=== PATIENT | male | born 1955 | race Caucasian/White ===

== ENCOUNTER 2019-10-11 11:04 | Emergency (ER) | payer MEDICARE, BC ==
--- NOTE | 2019-10-11 11:14 | EDM.PDOC ---
ED HPI GENERAL MEDICAL PROBLEM - General Stated Complaint: POSSIBLE HEART ATTACK Time Seen by Provider: 10/11/19 11:11 Source of Information: Reports: Patient, Significant Other - History of Present Illness INITIAL COMMENTS - FREE TEXT/NARRATIVE: Old gentleman who is had known previously existing angina presents with chest pain which occurred at rest yesterday and again today. Yesterday pain started at 5 PM and the patient rated it as a 7/10. At that time he took nitroglycerin x3 and aspirin and the pain subsided. Today pain came on at approximately 9 AM (at rest, immediately on awakening). He has not taken any Nitroglycerin or aspirin today for pain. He has taken his usual morning medications. He rates his current chest pain as 5/10. The patient has a pre-existing history of left bundle branch block. Also has a history of recurrent vascular procedures including carotid endarterectomy, 4 vessel CABG, and lower extremity vascular surgery. Onset Date: 10/11/19 Onset Time: 09:00 Duration: Chronic, Constant Location: Reports: Chest Chest Pain Score (Numeric/FACES): 5 - Related Data Allergies Allergy/AdvReac Type Severity Reaction Status Date / Time No Known Allergies Allergy Verified 01/24/19 09:51 Home Meds: Home Meds Aspirin [Ecotrin] 325 mg PO DAILY 09/24/17 [History] Clopidogrel Bisulfate [Clopidogrel] 75 mg PO DAILY 09/24/17 [History] Insulin Glarg,Human.Rec.Analog [Lantus Solostar] 30 units SQ DAILY 09/24/17 [History] Lisinopril 40 mg PO DAILY 09/24/17 [History] Metoprolol Succinate 50 mg PO DAILY 09/24/17 [History] Nitroglycerin 0.4 mg PO ASDIRECTED PRN 09/24/17 [History] Dapagliflozin/Metformin HCl [Xigduo Xr 5 mg-1,000 mg Tablet] 1 tab PO BID 01/21/19 [History] atorvaSTATin Calcium [Atorvastatin Calcium] 40 mg PO DAILY 01/21/19 [History] cilostazoL [Cilostazol] 50 mg PO BID 01/24/19 [History] Ferrous Sulfate [Iron] 325 mg PO DAILY 10/11/19 [History] Furosemide 20 mg PO DAILY 10/11/19 [History] Isosorbide Mononitrate 40 mg PO DAILY 10/11/19 [History] Pregabalin [Lyrica] 150 mg PO TID 10/11/19 [History] Past Medical History Cardiovascular History: Reports: CAD, High Cholesterol, Hypertension, Stents, Other (See Below) (Is anticoagulated.) ED ROS GENERAL - Review of Systems Review Of Systems: See Below Constitutional: Denies: Fever, Diaphoresis HEENT: Reports: No Symptoms Respiratory: Reports: Shortness of Breath, Wheezing Cardiovascular: Reports: Chest Pain, Edema Endocrine: Reports: Fatigue GI/Abdominal: Denies: Abdominal Pain Skin: Reports: No Symptoms Neurological: Reports: No Symptoms Psychiatric: Reports: No Symptoms ED EXAM, GENERAL - Physical Exam Exam: See Below Exam Limited By: No Limitations General Appearance: Alert Throat/Mouth: Normal Inspection Head: Atraumatic Neck: Non-Tender (No), Other Course - Vital Signs Text/Narrative:: The patient's chest pain went to 0 with a single dose of nitroglycerin. Troponin is elevated. AtTroponin is elevated. At 1245 I discussed the patient with Dr. Mendoza who agreed that the patient could be transferred for [facility] Last Recorded V/S: Last Vital Signs Temp 36.3 C 10/11/19 12:07 Pulse 64 10/11/19 12:07 Resp 17 10/11/19 12:07 BP 116/55 L 10/11/19 12:07 Pulse Ox 99 10/11/19 12:07 - Orders/Labs/Meds Orders: Active Orders 24 hr Category Date Time Status EKG Documentation Completion [RC] ASDIRECTED Care 10/11/19 11:13 Active Chest 2V [CR] Stat Exams 10/11/19 11:22 Taken UA W/MICROSCOPIC [URIN] Urgent Lab 10/11/19 11:22 Ordered Nitroglycerin [Nitrostat] Med 10/11/19 11:25 Active 0.4 mg SL Q5M PRN Sodium Chloride 0.9% [Normal Saline] 1,000 ml Med 10/11/19 11:23 Active IV TITRATE EKG 12 Lead [EK] Urgent Ther 10/11/19 11:13 Ordered Medication Orders Sodium Chloride (Normal Saline) 1,000 mls @ 75 mls/hr IV TITRATE ONE Stop: 10/12/19 00:42 Nitroglycerin (Nitrostat) 0.4 mg SL Q5M PRN PRN Reason: Chest Pain Labs: Laboratory Tests 10/11/19 10/11/19 10/11/19 Range/Units 11:30 11:30 11:30 WBC 7.7 (4.5-11.0) K/uL RBC 4.79 (4.30-5.90) M/uL Hgb 12.5 (12.0-15.0) g/dL Hct 37.8 L (40.0-54.0) % MCV 79 L (80-98) fL MCH 26 L (27-31) pg MCHC 33 (32-36) % Plt Count 266 (150-400) K/uL PT 14.0 H (9.5-12.0) sec INR 1.29 H (0.80-1.20) Sodium (140-148) mmol/L Potassium (3.6-5.2) mmol/L Chloride (100-108) mmol/L Carbon Dioxide (21-32) mmol/L Anion Gap (5.0-14.0) mmol/L BUN (7-18) mg/dL Creatinine (0.8-1.3) mg/dL Est Cr Clr Drug Dosing mL/min Estimated GFR (MDRD) (>60) Glucose (74-106) mg/dL Lactic Acid (0.4-2.0) mmol/L Calcium (8.5-10.1) mg/dL Total Bilirubin (0.2-1.0) mg/dL AST (15-37) U/L ALT (12-78) U/L Alkaline Phosphatase (46-116) U/L Troponin I 0.192 H* (0.000-0.056) ng/mL NT-Pro-B Natriuret Pep (5-125) pg/mL Total Protein (6.4-8.2) g/dL Albumin (3.4-5.0) g/dL Globulin (2.3-3.5) g/dL Albumin/Globulin Ratio (1.2-2.2) 10/11/19 10/11/19 Range/Units 11:30 11:30 WBC (4.5-11.0) K/uL RBC (4.30-5.90) M/uL Hgb (12.0-15.0) g/dL Hct (40.0-54.0) % MCV (80-98) fL MCH (27-31) pg MCHC (32-36) % Plt Count (150-400) K/uL PT (9.5-12.0) sec INR (0.80-1.20) Sodium 128 L (140-148) mmol/L Potassium 4.6 (3.6-5.2) mmol/L Chloride 94 L (100-108) mmol/L Carbon Dioxide 24 (21-32) mmol/L Anion Gap 14.6 H (5.0-14.0) mmol/L BUN 21 H (7-18) mg/dL Creatinine 1.6 H (0.8-1.3) mg/dL Est Cr Clr Drug Dosing 44.76 mL/min Estimated GFR (MDRD) 44 L (>60) Glucose 119 H (74-106) mg/dL Lactic Acid 1.5 (0.4-2.0) mmol/L Calcium 8.7 (8.5-10.1) mg/dL Total Bilirubin 2.2 H (0.2-1.0) mg/dL AST 20 (15-37) U/L ALT 17 (12-78) U/L Alkaline Phosphatase 272 H (46-116) U/L Troponin I (0.000-0.056) ng/mL NT-Pro-B Natriuret Pep 2992 H (5-125) pg/mL Total Protein 7.5 (6.4-8.2) g/dL Albumin 3.3 L (3.4-5.0) g/dL Globulin 4.2 H (2.3-3.5) g/dL Albumin/Globulin Ratio 0.8 L (1.2-2.2) Meds: Medications Generic Name Dose Route Start Last Admin Trade Name Freq PRN Reason Stop Dose Admin Sodium Chloride 1,000 mls @ 75 mls/hr 10/11/19 11:23 Normal Saline IV 10/12/19 00:42 TITRATE ONE Nitroglycerin 0.4 mg 10/11/19 11:25 Nitrostat SL Q5M PRN Chest Pain Discontinued Medications Generic Name Dose Route Start Last Admin Trade Name Freq PRN Reason Stop Dose Admin Aspirin 324 mg 10/11/19 11:25 Aspirin PO 10/11/19 11:26 ONETIME ONE Departure - Departure Time of Disposition: 12:53 Disposition: DC/Tfer to [facility] Reason for Transfer *Q: Primary PCI Indicated Condition: Fair Clinical Impression: Unstable angina Referrals: Donna Reyes MD [Primary Care Provider] - Sepsis Event Note (ED) - Focused Exam Vital Signs: Vital Signs Temp Pulse Resp BP Pulse Ox 10/11/19 12:07 36.3 C 64 17 116/55 L 99 10/11/19 11:19 36.3 C 64 17 116/55 L 99 - My Orders Last 24 Hours: My Active Orders 10/11/19 11:13 EKG Documentation Completion [RC] ASDIRECTED EKG 12 Lead [EK] Urgent 10/11/19 11:22 Chest 2V [CR] Stat UA W/MICROSCOPIC [URIN] Urgent 10/11/19 11:23 Sodium Chloride 0.9% [Normal Saline] 1,000 ml IV TITRATE 10/11/19 11:25 Nitroglycerin [Nitrostat] 0.4 mg SL Q5M PRN - Assessment/Plan Last 24 Hours: My Active Orders 10/11/19 11:13 EKG Documentation Completion [RC] ASDIRECTED EKG 12 Lead [EK] Urgent 10/11/19 11:22 Chest 2V [CR] Stat UA W/MICROSCOPIC [URIN] Urgent 10/11/19 11:23 Sodium Chloride 0.9% [Normal Saline] 1,000 ml IV TITRATE 10/11/19 11:25 Nitroglycerin [Nitrostat] 0.4 mg SL Q5M PRN
[2019-10-11] MEDS ORDERED: Sodium Chloride 0.9% 1,000 ML IV ONE (11:23)
[2019-10-11] MEDS ORDERED: Nitroglycerin 0.4 MG Tab.SL SL PRN (11:25)
[2019-10-11] MEDS ORDERED: Aspirin 81 MG Tab.Chew PO ONE (11:25)
[2019-10-11] MEDS ORDERED: Heparin Sodium/D5W 25,000 UNITS/500 ML BAG IV SCH (13:15)
--- NOTE | 2019-10-13 09:04 | CR ---
CHEST: 2 view CLINICAL HISTORY:Chest pain COMPARISON:None FINDINGS: The heart is enlarged. Patient has had previous sternotomy. Pulmonary vascularity is cephalized. There is some diffuse bilateral infiltrate. There are no effusions Impression: Cardiomegaly, vascular cephalization and bilateral infiltrates most consistent with CHF
== END 2019-10-11 13:20 | disposition critical access hospital (66) ==
LOC: JP.ED 11:04
DX: I25.110 Atherosclerotic heart disease of native coronary artery with unstable angina pectoris (principal); I10 Essential (primary) hypertension; E78.00 Pure hypercholesterolemia, unspecified; Z95.5 Presence of coronary angioplasty implant and graft; Z79.82 Long term (current) use of aspirin; Z79.899 Other long term (current) drug therapy; Z79.02 Long term (current) use of antithrombotics/antiplatelets; Z79.891 Long term (current) use of opiate analgesic; Z79.4 Long term (current) use of insulin
CPT/HCPCS: 36415; 71046; 80053; 83605; 83880; 84484; 85027; 85610; 93005; 96360; 96361; 99285; A9270; J1644; J7030; 93010

== ENCOUNTER 2019-11-20 00:04 | Emergency (ER) | payer MEDICARE, BC ==
[2019-11-20] MEDS ORDERED: Tranexamic Acid 1,000 MG in Sodium Chloride 0.9% 500 ML IV ONE ×2 (01:25→01:31)
[2019-11-20] MEDS ORDERED: fentaNYL 100 MCG/2 ML SDV IVPUSH ONE (01:25)
--- NOTE | 2019-11-20 01:42 | EDM.PDOC ---
ED HPI GENERAL MEDICAL PROBLEM - General Chief Complaint: ENT Problem Stated Complaint: MOUTH PAIN Time Seen by Provider: 11/20/19 01:20 Source of Information: Reports: Patient, RN Notes Reviewed History Limitations: Reports: No Limitations - History of Present Illness INITIAL COMMENTS - FREE TEXT/NARRATIVE: 63-year-old gentleman presents emergency department a complaint bleeding gums, he had dental extraction on 5 days prior total of 11 teeth initially did well however clots removed 2 days ago he does take Eliquis now he is just had continued oozing, also complains of a headache no nausea or vomiting states the pain is 10 out of 10 he usually does not get headache he complains of some facial swelling with the dental extraction Headache Pain Score (Numeric/FACES): 10 - Related Data Allergies Allergy/AdvReac Type Severity Reaction Status Date / Time No Known Allergies Allergy Verified 11/20/19 00:40 Home Meds: Home Meds Insulin Glarg,Human.Rec.Analog [Lantus Solostar] 30 units SQ DAILY 09/24/17 [History] Nitroglycerin 0.4 mg PO ASDIRECTED PRN 09/24/17 [History] atorvaSTATin Calcium [Atorvastatin Calcium] 40 mg PO DAILY 01/21/19 [History] Ferrous Sulfate [Iron] 325 mg PO DAILY 10/11/19 [History] Furosemide 20 mg PO DAILY 10/11/19 [History] Isosorbide Mononitrate 40 mg PO DAILY 10/11/19 [History] Pregabalin [Lyrica] 150 mg PO TID 10/11/19 [History] Acetaminophen/HYDROcodone [[place] 325-5 MG] 1 tab PO ASDIRECTED 11/20/19 [History] Amoxicillin/Potassium Clav [Amox-Clav 875-125 mg Tablet] 1 tab PO BID 11/20/19 [History] Apixaban [Eliquis] 5 mg PO BID 11/20/19 [History] glipiZIDE [Glucotrol XL] 2.5 mg PO DAILY 11/20/19 [History] Past Medical History HEENT History: Reports: Other (See Below) Other HEENT History: teeth removal Cardiovascular History: Reports: CAD, High Cholesterol, Hypertension, Stents, Other (See Below) Endocrine/Metabolic History: Reports: Diabetes, Type II - Infectious Disease History Infectious Disease History: Reports: Chicken Pox - Past Surgical History Cardiovascular Surgical History: Reports: Coronary Artery Stent, Valve Repla cement GI Surgical History: Reports: Appendectomy Social & Family History - Tobacco Use Smoking Status *Q: Never Smoker - Caffeine Use Caffeine Use: Reports: None - Recreational Drug Use Recreational Drug Use: No ED ROS ENT - Review of Systems Review Of Systems: See Below HEENT: Reports: Other Respiratory: Reports: No Symptoms (Bleeding gums) Cardiovascular: Reports: No Symptoms GI/Abdominal: Reports: No Symptoms Neurological: Reports: Headache ED EXAM, ENT - Physical Exam Exam: See Below Exam Limited By: No Limitations General Appearance: Alert, WD/WN, No Apparent Distress Nose: Normal Inspection, Normal Mucousa, No Blood Mouth/Throat: Bleeding, Dental Trauma, Gum Swelling, Lip Swelling Head: Atraumatic, Normocephalic Neck: Normal Inspection, Supple, Non-Tender, Full Range of Motion Respiratory/Chest: No Respiratory Distress Course - Vital Signs Last Recorded V/S: Last Vital Signs Temp 95.7 F L 11/20/19 00:38 Pulse 79 11/20/19 02:03 Resp 16 11/20/19 02:03 BP 148/47 H 11/20/19 02:03 Pulse Ox 98 11/20/19 02:03 - Orders/Labs/Meds Orders: Active Orders 24 hr Category Date Time Status Tranexamic Acid [Cyklokapron] Med 11/20/19 01:36 Once 1,000 mg IVPUSH ONETIME ONE Tranexamic Acid [Cyklokapron] 1,000 mg Med 11/20/19 01:31 Active Sodium Chloride 0.9% [Normal Saline] 500 ml IV ONETIME Medication Orders Tranexamic Acid 1,000 mg/ (Sodium Chloride) 510 mls @ 83 mls/hr IV ONETIME ONE Stop: 11/20/19 07:39 Last Admin: 11/20/19 02:01 Dose: Not Given Documented by: PONCHO Tranexamic Acid (Cyklokapron) 1,000 mg IVPUSH ONETIME ONE Stop: 11/20/19 07:44 Last Admin: 11/20/19 01:52 Dose: 1,000 mg Documented by: PONCHO Meds: Medications Generic Name Dose Route Start Last Admin Trade Name Freq PRN Reason Stop Dose Admin Tranexamic Acid 1,000 mg/ 510 mls @ 83 mls/hr 11/20/19 01:31 11/20/19 02:01 Sodium Chloride IV 11/20/19 07:39 Not Given ONETIME ONE Tranexamic Acid 1,000 mg 11/20/19 01:36 11/20/19 01:52 Cyklokapron IVPUSH 11/20/19 07:44 1,000 mg ONETIME ONE Administration Discontinued Medications Generic Name Dose Route Start Last Admin Trade Name Katelin PRN Reason Stop Dose Admin Fentanyl 50 mcg 11/20/19 01:25 11/20/19 01:48 Sublimaze IVPUSH 11/20/19 01:26 50 mcg ONETIME ONE Administration Departure - Departure Time of Disposition: 02:56 Disposition: Home, Self-Care 01 Condition: Fair Clinical Impression: Bleeding gums - Discharge Information Referrals: Donna Reyes MD [Primary Care Provider] - Forms: ED Department Discharge Additional Instructions: Continue with your regular medications, try Tylenol or Motrin as needed for pain control. Please followup with your primary care provider in 3-5 days if not better, please call return to the emergency department with worsening of symptoms. Sepsis Event Note (ED) - Evaluation Sepsis Screening Result: No Definite Risk - Focused Exam Vital Signs: Vital Signs Temp Pulse Resp BP Pulse Ox 11/20/19 02:03 79 16 148/47 H 98 11/20/19 00:38 95.7 F L 80 16 157/65 H 99 11/20/19 00:24 95.7 F L 80 16 157/65 H 99 - My Orders Last 24 Hours: My Active Orders 11/20/19 01:31 Tranexamic Acid [Cyklokapron] 1,000 mg Sodium Chloride 0.9% [Normal Saline] 500 ml IV ONETIME 11/20/19 01:36 Tranexamic Acid [Cyklokapron] 1,000 mg IVPUSH ONETIME ONE - Assessment/Plan Last 24 Hours: My Active Orders 11/20/19 01:31 Tranexamic Acid [Cyklokapron] 1,000 mg Sodium Chloride 0.9% [Normal Saline] 500 ml IV ONETIME 11/20/19 01:36 Tranexamic Acid [Cyklokapron] 1,000 mg IVPUSH ONETIME ONE Plan: Assessment Acuity = acute Site and laterality = bleeding gums Etiology = secondary to dental extraction Manifestations = none Location of injury = Home Lab values = none Plan Good improvement with Tranenamic acid and fentanyl and follow-up with his regular dental appointment This note was dictated using [employer] voice recognition software please call with any questions on syntax or grammar.
== END 2019-11-20 03:13 | disposition home or self-care (01) ==
LOC: JP.ED 00:04
DX: K06.8 Other specified disorders of gingiva and edentulous alveolar ridge (principal); E78.00 Pure hypercholesterolemia, unspecified; I10 Essential (primary) hypertension; I25.10 Atherosclerotic heart disease of native coronary artery without angina pectoris; E11.9 Type 2 diabetes mellitus without complications; Z79.899 Other long term (current) drug therapy; Z79.4 Long term (current) use of insulin; Z79.01 Long term (current) use of anticoagulants
CPT/HCPCS: 96374; 96375; 99284; J3010